=== PATIENT | female | born 1955 | race Caucasian/White ===

== ENCOUNTER 2020-04-03 12:30 | Emergency (ER) | payer MEDICARE ==
[~2020-04-03] VITALS: Ht 157.5 cm; Wt 69.9 kg
[2020-04-03] MEDS ORDERED: KETOROLAC TROMETHAMINE 60 MG/2 ML VIAL IM ONE (13:00)
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
--- NOTE | 2020-04-03 14:04 | Diagnostic Imaging Report ---
EXAMINATION: RIBS UNILAT W/CXR INDICATION: fall 4 d ago, right rib pain COMPARISON: None FINDINGS: TUBES and LINES: None. LUNGS: Lungs are well inflated. There is no evidence of pneumonia or pulmonary edema. PLEURA: No pleural effusion or pneumothorax. HEART AND MEDIASTINUM: The cardiomediastinal silhouette is unremarkable. There are atherosclerotic calcifications within the aorta. BONES AND SOFT TISSUES: No acute osseous abnormality. Acute, nondisplaced right lateral seventh rib fracture. Diffuse osteopenia. Partially visualized, moderate to severe compression deformity at L1. UPPER ABDOMEN: No free air under the diaphragm. IMPRESSION: Acute, nondisplaced right lateral seventh rib fracture. No evidence of pneumothorax. Moderate to severe compression deformity at L1, age indeterminate. Recommend clinical correlation and lumbar spine radiographs for further evaluation. Signed by: Dr. Rupesh Stokes MD on 04/03/2020 2:01 PM
[2020-04-03] MEDS ORDERED: LIDOCAINE 4% PATCH TP ONE (14:30)
== END 2020-04-03 14:45 | disposition home or self-care (01) ==
LOC: ER 12:30
DX: S22.31XA Fracture of one rib, right side, initial encounter for closed fracture (principal); S32.010A Wedge compression fracture of first lumbar vertebra, initial encounter for closed fracture; E78.5 Hyperlipidemia, unspecified; K21.9 Gastro-esophageal reflux disease without esophagitis; F41.9 Anxiety disorder, unspecified; E03.9 Hypothyroidism, unspecified
CPT/HCPCS: 71101; 99283; J1885